=== PATIENT | female | born 2000 | race Caucasian/White ===

== ENCOUNTER 2024-09-18 13:21 | Outpatient (CLI) | payer BC, SELFPAY | END 2024-09-18 13:22 | disposition home or self-care (01) | LOC: NFLDREF 13:26 | PROVIDERS: PCP Family Medicine; Visit Provider Family Medicine | DX: E01.0 Iodine-deficiency related diffuse (endemic) goiter (principal); F32.A Depression, unspecified; R53.83 Other fatigue | CPT/HCPCS: 84443 ==

== ENCOUNTER 2024-09-25 13:26 | Outpatient (CLI) | payer BC, SELFPAY ==
--- NOTE | 2024-09-25 13:45 | CRLHL7_ITS ---
For Patients: As a result of the Century Cures Act, medical imaging exams and procedure reports are released immediately into your electronic medical record. You may view this report before your referring provider. If you have questions, please contact your health care provider. INDICATION: Thyromegaly, hair loss COMPARISON: none TECHNIQUE: Pendleton scale and color Doppler images were acquired of the thyroid gland. FINDINGS: The thyroid gland demonstrates diffusely heterogeneous echogenicity and has a lobular outer contour. The right lobe measures 7.6 x 2.6 x 3.1 cm and the left lobe measures 7.6 x 2.7 x 2.6 cm in size. Isthmus measured 6.3 millimeters. The color Doppler images demonstrate diffusely increased vascularity. There is no evidence of cervical lymphadenopathy or parathyroid mass. IMPRESSION: Enlarged, heterogeneous and hypervascular thyroid gland without nodule. Dictated by Juaquin Rivera MD @ 09/25/2024 2:54:17 PM (Electronically Signed)
== END 2024-09-25 13:27 | disposition home or self-care (01) ==
PROVIDERS: PCP Family Medicine; Visit Provider Family Medicine
DX: E01.0 Iodine-deficiency related diffuse (endemic) goiter (principal)
CPT/HCPCS: 76536

== ENCOUNTER 2025-05-18 16:34 | Emergency (ER) | payer BC, SELFPAY ==
[2025-05-18 16:40] VITALS: BP 121/83; PULSE 113; RESP 18; TEMP 36.6; O2SAT 97; BMI 45.5
--- NOTE | 2025-05-18 16:47 | CRLHL7_ITS ---
For Patients: As a result of the Century Cures Act, medical imaging exams and procedure reports are released immediately into your electronic medical record. You may view this report before your referring provider. If you have questions, please contact your health care provider. INDICATION: Positive home test. Vaginal bleeding. TECHNIQUE: Ultrasound OB pelvis transabdominal and transvaginal. Real-time cisneros-scale imaging of the pelvis was performed. COMPARISON: None FINDINGS: No intrauterine gestational sac is identified. Unremarkable appearance of the bilateral ovaries, with suggestion of a small corpus luteum cyst in the left ovary. No abnormal adnexal masses identified. No significant pelvic free fluid. IMPRESSION: 1. No intrauterine gestational sac is identified. No abnormal adnexal mass. This constitutes a of unknown location, differential of which includes a very early not yet detected by ultrasound, unidentified ectopic , or miscarriage. Recommend correlation with, and trending of serum beta HCG, and follow-up ultrasound as clinically indicated. 2. Suggestion of a small corpus luteum cyst in the left ovary. Dictated by Jeanette Khanna MD @ 05/18/2025 6:59:31 PM (Electronically Signed)
[2025-05-18 17:06] LABS: Hematocrit* 40.6 % (33.0-51.0); Hemoglobin* 13.9 gm/dL (12.0-16.0); Immature Granulocytes Pct Auto 0.3 %; Mean Corpuscular HGB Conc 34 gm/dL (32-36); Mean Corpuscular Hemoglobin 29 pg (26-34); Mean Corpuscular Volume 84 fL (80-100); RDW Coefficient of Variation % 12.8 % (11.5-15.5); Red Blood Count* 4.83 m/uL (4.00-5.20); White Blood Count* 11.85 K/uL (4.50-11.00)
[2025-05-18 17:20] LABS: Immature Granulocytes Abs Auto 0.00 K/uL (0.00-0.30); Lymphocytes Absolute Auto 2.20 K/uL (0.90-2.90); Slide Review Reflex No
--- NOTE | 2025-05-18 17:31 | ED.GENADULT ---
HPI - General Adult General Chief complaint: Vaginal Bleeding Stated complaint: Positive test, bleeding Time Seen by Provider: 05/18/25 16:39 Source: patient Mode of arrival: ambulatory Limitations: no limitations History of Present Illness HPI narrative: 25-year-old female coming in today concerned about vaginal bleeding. Patient's period was due yesterday but it started today. However, she is trying to get and had multiple positive tests last week. Bleeding is like a normal. Patient has 1 previous and 1 live . Past medical history significant for anxiety, depression, obesity. Related Data Home Medications ?Medication ?Instructions ?Recorded ?Confirmed betamethasone dipropionate 0.05 % topical DAILY 10/10/24 10/10/24 lotion ketoconazole 2 % shampoo 1 applic topical 2XW 10/10/24 05/18/25 Previous Rx's ?Medication ?Instructions ?Recorded fluoxetine 20 mg capsule 20 mg PO QDAY #30 caps 09/18/24 Allergies Allergy/AdvReac Type Severity Reaction Status Date / Time No Known Drug Allergies Allergy Verified 05/18/25 16:40 Review of Systems Status of ROS: Reports: 6 or more systems reviewed and unremarkable except as noted in History and below PFSH PFSH Social History What is your current living situation?: I presently have a place to live Problems where you live: no known problems In the past 12 months, utilities in danger of being shut off: no In past 12 months, lack of transportation kept you from medical appts, meetings, work, or getting things needed for daily living: no In the past 12 mos, have been you worried that your food would run out before you had money to buy more?: often true In the past 12 mos, the food you bought just didn't last and you didn't have money to buy more?: often true Smoking Status: Never smoker How often do you have a drink containing alcohol: never AUDIT-C Alcohol total score: 0 Non-prescribed substance use: denies use How often does anyone, including family, friends and others, physically hurt you: never How often does anyone, including family, friends and others, insult or talk down to you: never How often does anyone, including family, friends and others, threaten you with harm: never How often does anyone, including family, friends and others, scream or curse at you: never Health Related Social Needs: food insecurity (Z59.41) Exam Narrative: Exam Narrative: Well-nourished well-developed patient in no acute distress. Alert and oriented. Answers questions appropriately. Mood and affect are appropriate. Thoughts are goal oriented and rational. No tangential or magical thinking noted. Patient speaks in full sentences without needing to catch her breath. HEENT: Normocephalic atraumatic. Pupils are equally round reactive to light. Extraocular muscles are intact. Conjunctivae are moist without any icterus noted. Moist mucous membranes. Cardiovascular: Heart is regular rate and rhythm S1 and S2 are present without any murmurs. Lungs: Clear to auscultation bilaterally no wheezes rhonchi or rales are appreciated. Abdomen: Soft and nontender nondistended with normal bowel sounds. Const: Vital Signs, click to edit/add: Vital Signs - 24 hr 05/18/25 16:40 05/18/25 18:43 Temperature 97.8 F Pulse Rate [Pulse Oximeter] 113 H 88 Respiratory Rate 18 16 Blood Pressure [Ri t Upper Arm] 121/83 118/65 Pulse Oximetry 97 99 Oxygen Delivery Me thod Room Air Room Air Course Course ED Course: CBC unremarkable. Vital Signs Vital signs: Initial Vital Signs Temperature 97.8 F 05/18/25 16:40 Temperature Source Temporal Artery Scan 05/18/25 16:40 Pulse Rate 113 H 05/18/25 16:40 Respiratory Rate 18 05/18/25 16:40 Blood Pressure 121/83 05/18/25 16:40 Blood Pressure Mean 95 05/18/25 16:40 Blood Pressure Position Sitting 05/18/25 16:40 Pulse Oximetry 97 05/18/25 16:40 Oxygen Delivery Method Room Air 05/18/25 16:40 Vital Signs Temperature 97.8 F 05/18/25 16:40 Pulse Rate 113 H 05/18/25 16:40 Respiratory Rate 18 05/18/25 16:40 Blood Pressure 121/83 05/18/25 16:40 Pulse Oximetry 97 05/18/25 16:40 Oxygen Delivery Method Room Air 05/18/25 16:40 Temperature 97.8 F 05/18/25 16:40 Pulse Rate 88 05/18/25 18:43 Respiratory Rate 16 05/18/25 18:43 Blood Pressure 118/65 05/18/25 18:43 Pulse Oximetry 99 05/18/25 18:43 Oxygen Delivery Method Room Air 05/18/25 18:43 Medical Decision Making MDM Narrative Medical decision making narrative: 25-year-old female with vaginal bleeding. Lab Data Labs: Lab Results 05/18/25 Range/Units 16:57 WBC 11.85 H (4.50-11.00) K/uL RBC 4.83 (4.00-5.20) m/uL Hgb 13.9 (12.0-16.0) gm/dL Hct 40.6 (33.0-51.0) % MCV 84 (80-100) fL MCH 29 (26-34) pg MCHC 34 (32-36) gm/dL RDW Coeff of Len 12.8 (11.5-15.5) % Plt Count 299 (140-440) K/uL Neut % (Auto) 72.6 H (42.0-72.0) % Lymph % (Auto) 18.8 L (20-44) % [place]berry % (Auto) 6.8 (0.0-11.0) % Eos % (Auto) 1.2 (0.0-7.0) % Baso % (Auto) 0.3 (0.0-3.0) % Neut # (Auto) 8.60 H (1.7-7.0) K/uL Lymph # (Auto) 2.20 (0.90-2.90) K/uL [place]berry # (Auto) 0.80 (0.00-0.90) K/UL Eos # (Auto) 0.10 (0.00-0.50) K/uL Baso # (Auto) 0.00 (0.00-0.30) K/uL Abs Immat Gran (auto) 0.00 (0.00-0.30) K/uL Imm/Tot Granulo (auto) 0.3 % HCG, Quant 8.44 mIU/mL Blood Type A Positive Imaging Data US - abdomen: Attestation: I have reviewed the pertinent imaging results. Radiologist's impression: TECHNIQUE: Ultrasound OB pelvis transabdominal and transvaginal. Real-time cisneros-scale imaging of the pelvis was performed. COMPARISON: None FINDINGS: No intrauterine gestational sac is identified. Unremarkable appearance of the bilateral ovaries, with suggestion of a small corpus luteum cyst in the left ovary. No abnormal adnexal masses identified. No significant pelvic free fluid. IMPRESSION: 1. No intrauterine gestational sac is identified. No abnormal adnexal mass. This constitutes a of unknown location, differential of which includes a very early not yet detected by ultrasound, unidentified ectopic , or miscarriage. Recommend correlation with, and trending of serum beta HCG, and follow-up ultrasound as clinically indicated. 2. Suggestion of a small corpus luteum cyst in the left ovary. Discharge Plan Discharge Clinical Impression: Chemical , Spontaneous Patient Disposition: Home, Self-Care Condition: Stable Additional Instructions: You have likely experienced a very early stage miscarriage. This is also known as a chemical given that a miscarriage occurs before the can be seen on ultrasound and is only detected by a hormone. This does not impact your ability to get in the future. Recommend returning to the emergency department if you develop heavier than normal bleeding, soaking 1 pad every hour or more. Prescriptions: No Action fluoxetine 20 mg capsule 20 mg PO QDAY Qty: 30 1RF ketoconazole 2 % shampoo 1 applic topical 2XW betamethasone dipropionate 0.05 % lotion topical DAILY Follow Up/Referrals: Tod Webster MD [Primary Care Provider, Family Practice] Stand Alone Forms: Trulia Info Instructions
[2025-05-18 18:32] LABS: HCG Quantitative* 8.44 mIU/mL
[2025-05-18 18:43] VITALS: BP 118/65; PULSE 88; RESP 16; O2SAT 99
== END 2025-05-18 19:24 | disposition home or self-care (01) ==
PROVIDERS: Emergency Provider Family Medicine; PCP Family Medicine
DX: O02.81 Inappropriate change in quantitative human chorionic gonadotropin (hCG) in early pregnancy (principal); O03.9 Complete or unspecified spontaneous abortion without complication
CPT/HCPCS: 36415; 76801; 76817; 84702; 85025; 86900; 86901; 93976; 99284